=== PATIENT | male | born 1950 | race Caucasian/White ===

== ENCOUNTER 2017-12-17 08:52 | Day surgery (SDC) | payer OTHER, MEDICARE ==
[~2017-12-17] VITALS: Ht 180.3 cm; Wt 79.0 kg
[~2017-12-17 08:52] MED LIST: FENOFIBRATE54 M1 PO; FLONASE16 G1 BOTH NARES; FLOVENT 11120 INHALA IH; FOLIC ACID1 MG PO; PRILOSEC OTC20 MG PO; VENTOLIN HFA18 GM IH; VIAGRA50 MG PO; VITAMIN B-1100 MG PO; ZESTORETIC 10-1 EAC1 PO
[2017-12-17] MEDS ORDERED: LISINOPRIL5 MG PO (09:26)
[2017-12-17 09:30] LABS: BASOPHIL (%) 1.3 % (0-1); BASOPHIL COUNT 0.1 K/uL (0-0.1); EOSINOPHIL (%) 5.8 % (0-5); EOSINOPHIL COUNT 0.4 K/uL (0-0.3); HEMATOCRIT 39.9 % (38.0-50.0); HEMOGLOBIN 13.4 G/DL (12.5-16.6); IMMATURE GRANULOCYTE (%) 0.3 % (0.0-0.7); LYMPHOCYTE (%) 27.6 % (15-42); LYMPHOCYTE COUNT 1.7 K/uL (1.0-2.8); MCHC 33.6 G/DL (30.0-36.0); MCV 92.4 FL (86-99); MONOCYTE (%) 11.4 % (3-12); MONOCYTE COUNT 0.7 K/uL (0-0.8); NEUTROPHIL (%) 53.6 % (45-76); NEUTROPHIL COUNT 3.4 K/uL (1.8-6.4); PLATELET COUNT 320 K/uL (156-360); RBC DIS.WIDTH-CV 11.7 % (11.8-14.6); RBC DIS.WIDTH-SD 39.5 % (39-53); RED BLOOD COUNT 4.32 M/uL (4.00-5.50); WHITE BLOOD COUNT 6.2 K/uL (4.1-10.2)
[2017-12-17 09:36] VITALS: BP 115/80
[2017-12-17 09:48] LABS: ALBUMIN 4.2 G/DL (3.2-4.8); CHLORIDE 98 MEQ/L (99-109); POTASSIUM 3.5 MEQ/L (3.7-5.4); SODIUM 134 MEQ/L (136-147); TOTAL BILIRUBIN 0.3 MG/DL (0.0-1.0)
[2017-12-17 09:54] LABS: ALKALINE PHOSPHATASE 48 IU/L (3-129); ALT (GPT) 9 IU/L (3-49); AST (GOT) 14 IU/L (2-34); GFR ESTIMATE (CALCULATED) > 59 mL/min/ (58.99-99999); GLUCOSE 96 mg/dL (70-99); TOTAL PROTEIN 7.2 G/DL (6.4-8.3); UREA NITROGEN (BUN) 9 mg/dL (9-23)
[2017-12-17 12:10] VITALS: BP 127/73
[2017-12-17 12:51] VITALS: BP 140/86
== END 2017-12-17 13:03 | disposition home or self-care (01) ==
LOC: SDC 08:52
PROVIDERS: Internal Medicine
DX: H33.41 Traction detachment of retina, right eye (principal); I10 Essential (primary) hypertension; J45.20 Mild intermittent asthma, uncomplicated; K21.9 Gastro-esophageal reflux disease without esophagitis; I49.3 Ventricular premature depolarization; E78.5 Hyperlipidemia, unspecified
CPT/HCPCS: 80053; 85025; J0690; J2405; J3010; J3300; J7120